=== PATIENT | male | born 1945 | race Caucasian/White ===

== ENCOUNTER → 2018-12-03 | Outpatient (CLI) | payer OTHER ==
[~2018-12-03] MED LIST: ACET325 PO; ALBU90OI INH; ALBU90OI6 INH; BREO ELLIPTA 11 EACH IH; BREO ELLIPTA 21 EACH IH; ESSENTIAL OILS; GUAI600T33 PO; LEVFLO500 PO; METO25 PO; STIOLTO RESPIMAT4 GM INH; TIOT18 INH; Tylenol With C1 EACH PO
== END | disposition home or self-care (01) ==
LOC: LAB SHORT 13:55 → PLD 13:55
DX: C44.329 Squamous cell carcinoma of skin of other parts of face (principal)
CPT/HCPCS: 88305

== ENCOUNTER → 2018-12-24 | Outpatient (CLI) | payer OTHER | LOC: PLD 09:05 → LAB SHORT 09:05 | DX: C44.320 Squamous cell carcinoma of skin of unspecified parts of face (principal) | CPT/HCPCS: 88305 ==

== ENCOUNTER → 2018-12-31 | Outpatient (CLI) | payer OTHER | END | disposition home or self-care (01) | LOC: PLD 13:33 → LAB SHORT 13:33 | DX: C44.212 Basal cell carcinoma of skin of right ear and external auricular canal (principal) | CPT/HCPCS: 88305 ==

== ENCOUNTER 2019-07-16 08:14 | Day surgery (SDC) | payer OTHER ==
[~2019-07-16] VITALS: Ht 177.8 cm; Wt 72.6 kg
[~2019-07-16 08:14] MED LIST changes: +CYAN500 PO
--- NOTE | 2019-07-16 08:58 | NUR ---
History, Chart, Medications and Allergies reviewed before start of procedure. Patient confirms NPO status and agrees with scheduled surgery. Patient States Post-Procedure ride home has been arranged with his .
--- NOTE | 2019-07-16 15:13 | NUR ---
1510 PT RECEIVED A TOTAL OF ONE PAIN PILL AND REGLAN T/O RECOVERY. ABLE TO DISCONTINUE THE OXYGEN AFTER MORE AWAKE AND EXCERSISNG ON IS. PT DENIES SOB. AT BEDSIDE. Patient up to Ambulate independently. Gait steady. Discharge instructions reviewed with patient. Patient verbalizes understanding. Copy given to patient to take home. Patient States Post-Procedure ride home has been arranged. Discharged via wheelchair to private car for ride home. ALL BELONINGS SENT WITH PATIENT.
== END 2019-07-16 23:09 | disposition home or self-care (01) ==
LOC: ORSCMMR 08:14 → ORD 10:00 → ORSCMMR 23:09
PROVIDERS: Surgery
PROC: 8E0W4CZ Robotic Assisted Procedure of Trunk Region, Percutaneous Endoscopic Approach (ICD-10-PCS; principal; 2019-07-16 10:00)
PROC: 0YU54JZ Supplement Right Inguinal Region with Synthetic Substitute, Percutaneous Endoscopic Approach (ICD-10-PCS; principal; 2019-07-16 10:00)
DX: K40.91 Unilateral inguinal hernia, without obstruction or gangrene, recurrent (principal); Z79.899 Other long term (current) drug therapy
CPT/HCPCS: 49651; S2900; A9270-GY; C1781; J0690; J1100; J1885; J2250; J2405; J2704; J2765; J3010; J7120

== ENCOUNTER → 2020-05-31 | Outpatient (CLI) | payer OTHER ==
[~2020-05-31] MED LIST changes: +FLONASE ALLERG9.9 M2
== END | disposition home or self-care (01) ==
LOC: LAB 11:14 → LAB SHORT 11:14
DX: D04.39 Carcinoma in situ of skin of other parts of face (principal); C44.212 Basal cell carcinoma of skin of right ear and external auricular canal
CPT/HCPCS: 88305

== ENCOUNTER 2020-08-14 08:58 | Day surgery (SDC) | payer OTHER ==
[~2020-08-14] VITALS: Ht 175.3 cm; Wt 73.5 kg
--- NOTE | 2020-08-14 10:55 | NUR ---
08/14/20 1055 Kathy Presley (Alana 3ML NORMAL SALINE INJECTED FOR RECTAL POLYPECTOMY.
== END 2020-08-14 11:22 | disposition home or self-care (01) ==
LOC: ORSCSDS 08:58
PROVIDERS: Internal Medicine Gastroenterology
PROC: 0DBN8ZX Excision of Sigmoid Colon, Via Natural or Artificial Opening Endoscopic, Diagnostic (ICD-10-PCS; principal; 2020-08-14 10:15)
PROC: 0DBK8ZX Excision of Ascending Colon, Via Natural or Artificial Opening Endoscopic, Diagnostic (ICD-10-PCS; principal; 2020-08-14 10:15)
PROC: 0DBP8ZX Excision of Rectum, Via Natural or Artificial Opening Endoscopic, Diagnostic (ICD-10-PCS; principal; 2020-08-14 10:15)
PROC: 0DBH8ZX Excision of Cecum, Via Natural or Artificial Opening Endoscopic, Diagnostic (ICD-10-PCS; principal; 2020-08-14 10:15)
PROC: 0DBL8ZX Excision of Transverse Colon, Via Natural or Artificial Opening Endoscopic, Diagnostic (ICD-10-PCS; principal; 2020-08-14 10:15)
DX: K62.5 Hemorrhage of anus and rectum (principal); D12.0 Benign neoplasm of cecum; D12.2 Benign neoplasm of ascending colon; D12.3 Benign neoplasm of transverse colon; K63.5 Polyp of colon; K62.1 Rectal polyp; K57.30 Diverticulosis of large intestine without perforation or abscess without bleeding; K64.1 Second degree hemorrhoids; F17.210 Nicotine dependence, cigarettes, uncomplicated; Z85.118 Personal history of other malignant neoplasm of bronchus and lung; I10 Essential (primary) hypertension; E78.00 Pure hypercholesterolemia, unspecified; J44.9 Chronic obstructive pulmonary disease, unspecified; Z79.899 Other long term (current) drug therapy
CPT/HCPCS: 88305; J2704; J7120

== ENCOUNTER → 2020-11-16 | Outpatient (CLI) | payer OTHER | END | disposition home or self-care (01) | LOC: LAB SHORT 12:25 | DX: D48.5 Neoplasm of uncertain behavior of skin (principal) | CPT/HCPCS: 88305 ==

== ENCOUNTER → 2020-11-28 | Outpatient (CLI) | payer OTHER | END | disposition home or self-care (01) | LOC: LAB SHORT 11:51 → LAB 11:51 | DX: C44.212 Basal cell carcinoma of skin of right ear and external auricular canal (principal) | CPT/HCPCS: 88305 ==

== ENCOUNTER → 2021-09-06 | Outpatient (CLI) | payer OTHER | END | disposition home or self-care (01) | LOC: LAB SHORT 10:59 → PLD 10:59 | DX: C44.212 Basal cell carcinoma of skin of right ear and external auricular canal (principal) | CPT/HCPCS: 88305 ==

== ENCOUNTER → 2022-04-11 | Outpatient (CLI) | payer OTHER | END | disposition home or self-care (01) | LOC: LAB SHORT 15:08 | DX: D04.39 Carcinoma in situ of skin of other parts of face (principal); D04.62 Carcinoma in situ of skin of left upper limb, including shoulder | CPT/HCPCS: 88305 ==

== ENCOUNTER 2023-01-01 06:12 | Day surgery (SDC) | payer OTHER ==
[~2023-01-01] VITALS: Ht 177.8 cm; Wt 72.0 kg
[2023-01-01] MEDS ORDERED: BREO ELLIPTA 11 EAC1 (06:27)
--- NOTE | 2023-01-01 06:32 | NUR ---
01/01/23 0632 Mary Andersen TETRACAINE TO LEFT EYE AT 0630 PLEDGET TO LEFT EYE AT 0632 BY [facility].AGUST[facility]N
[2023-01-01 07:55] VITALS: BP 127/77
--- NOTE | 2023-01-01 08:03 | NUR ---
01/01/23 0803 CANDIDA MUNOZ IV REMOVED. WNL. COLLEEN WELL. CANNULA INTACT
== END 2023-01-01 08:15 | disposition home or self-care (01) ==
LOC: ORSCSDS 06:12
PROVIDERS: Student in an Organized Health Care Education/Training Program
PROC: 08RK3JZ Replacement of Left Lens with Synthetic Substitute, Percutaneous Approach (ICD-10-PCS; principal; 2023-01-01 07:30)
DX: H25.13 Age-related nuclear cataract, bilateral (principal); I10 Essential (primary) hypertension; J44.9 Chronic obstructive pulmonary disease, unspecified; Z85.118 Personal history of other malignant neoplasm of bronchus and lung; Z87.891 Personal history of nicotine dependence; Z79.899 Other long term (current) drug therapy
CPT/HCPCS: J2001; J2250; J2704; J7040; V2632

== ENCOUNTER 2023-01-15 06:15 | Day surgery (SDC) | payer OTHER ==
[~2023-01-15] VITALS: Ht 177.8 cm; Wt 71.7 kg
[~2023-01-15 06:15] MED LIST changes: +BREO ELLIPTA 11 EAC1
--- NOTE | 2023-01-15 06:51 | NUR ---
01/15/23 0651 Pio Mooney RIGHT EYE VERIFIED CORRECT EYE VIA CONSENT AND PT. TETRACAINE PLACED IN RIGHT EYE AT 0641. PLEDGET PLACED IN RIGHT EYE AT 0643. PT TOLERATED WELL. CALL LIGHT WITHIN REACH.
[2023-01-15 07:57] VITALS: BP 116/75
--- NOTE | 2023-01-15 08:08 | NUR ---
01/15/23 0808 Freida Langley IV REMOVED. WNL. IV CATHETER INTACT.
== END 2023-01-15 08:25 | disposition home or self-care (01) ==
LOC: ORSCSDS 06:15
PROVIDERS: Student in an Organized Health Care Education/Training Program
PROC: 08RJ3JZ Replacement of Right Lens with Synthetic Substitute, Percutaneous Approach (ICD-10-PCS; principal; 2023-01-15 07:30)
DX: H25.11 Age-related nuclear cataract, right eye (principal); Z96.1 Presence of intraocular lens; J44.9 Chronic obstructive pulmonary disease, unspecified; I10 Essential (primary) hypertension; Z87.891 Personal history of nicotine dependence; Z79.899 Other long term (current) drug therapy
CPT/HCPCS: J2001; J2250; J3010; J7040; V2632

== ENCOUNTER → 2023-08-05 | Outpatient (CLI) | payer OTHER | END | disposition home or self-care (01) | LOC: LAB SHORT 12:03 → LAB 12:03 | DX: D09.8 Carcinoma in situ of other specified sites (principal); D04.39 Carcinoma in situ of skin of other parts of face | CPT/HCPCS: 88305 ==

== ENCOUNTER 2025-01-25 13:27 | Day surgery (SDC) | payer OTHER ==
[~2025-01-25] VITALS: Ht 177.8 cm; Wt 72.7 kg
[~2025-01-25 13:27] MED LIST changes: -BREO ELLIPTA 11 EAC1; +BREO ELLIPTA 21 EAC1 INH; +DUTA.5 PO; +FLUT1DIS5 INH; +METR59TL TOP; +MULTI-VITAMIN1 EAC2 PO; +TRELEGY ELLIPT1 EACH INH
[2025-01-25 14:04] VITALS: BP 153/103
--- NOTE | 2025-01-25 14:25 | NUR ---
Ambulatory in Day Surgery WITH STEADY GAIT. History, Chart, Medications and Allergies reviewed before start of procedure. Patient States Post-Procedure ride home has been arranged. Patient confirms NPO status and agrees with scheduled surgery. Patient States Post-Procedure ride home has been arranged WITH JOEY. 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 PT REPORTS DENTURES BEING LEFT AT HOME.
--- NOTE | 2025-01-25 15:34 | NUR ---
01/25/[address] SEE ANESTHESIA RECORDS.
[2025-01-25 16:15] VITALS: BP 109/79
[2025-01-25 16:20] VITALS: BP 118/73
--- NOTE | 2025-01-25 16:36 | NUR ---
Discharge instructions reviewed with patient. Patient verbalizes understanding. Copy given to patient to take home. Discharged via wheelchair to private car for ride home.
== END 2025-01-25 16:40 | disposition home or self-care (01) ==
LOC: ORSCMMR 13:27 → ORD 15:00 → ORSCMMR 15:00 → ORSCSDS 15:00 → ORSCMMR 16:40
PROVIDERS: Surgery
PROC: 0DBK8ZX Excision of Ascending Colon, Via Natural or Artificial Opening Endoscopic, Diagnostic (ICD-10-PCS; principal; 2025-01-25 15:00)
PROC: 0DBL8ZX Excision of Transverse Colon, Via Natural or Artificial Opening Endoscopic, Diagnostic (ICD-10-PCS; principal; 2025-01-25 15:00)
PROC: 0DBN8ZX Excision of Sigmoid Colon, Via Natural or Artificial Opening Endoscopic, Diagnostic (ICD-10-PCS; principal; 2025-01-25 15:00)
PROC: 0DBM8ZX Excision of Descending Colon, Via Natural or Artificial Opening Endoscopic, Diagnostic (ICD-10-PCS; principal; 2025-01-25 15:00)
DX: Z12.11 Encounter for screening for malignant neoplasm of colon (principal); Z86.0101 Personal history of adenomatous and serrated colon polyps; D12.3 Benign neoplasm of transverse colon; D12.2 Benign neoplasm of ascending colon; D12.4 Benign neoplasm of descending colon; D12.5 Benign neoplasm of sigmoid colon; Z85.118 Personal history of other malignant neoplasm of bronchus and lung; J44.9 Chronic obstructive pulmonary disease, unspecified; I10 Essential (primary) hypertension; Z79.899 Other long term (current) drug therapy; Z87.891 Personal history of nicotine dependence
CPT/HCPCS: 88305; J2704; J7120

== ENCOUNTER → 2025-02-15 | Outpatient (CLI) | payer OTHER | LOC: LAB 11:34 → LAB SHORT 11:34 → LAB FUT 02-10 10:10 | DX: J43.9 Emphysema, unspecified (principal) | CPT/HCPCS: 87070; 87077; 87185; 87205 ==

== ENCOUNTER 2025-03-06 17:04 | Emergency (ER) | payer OTHER ==
[~2025-03-06] VITALS: Ht 177.8 cm; Wt 75.3 kg
[2025-03-06 19:45] VITALS: BP 168/101
== END 2025-03-06 19:46 | disposition home or self-care (01) ==
LOC: ER 17:04
DX: S61.211A Laceration without foreign body of left index finger without damage to nail, initial encounter (principal); W27.8XXA Contact with other nonpowered hand tool, initial encounter; J44.9 Chronic obstructive pulmonary disease, unspecified
CPT/HCPCS: 12001; 73130; 99282-25